=== PATIENT | male | born 1995 ===

== ENCOUNTER → 2022-09-22 | Outpatient (REF) | payer OTHER ==
[2022-09-22 14:58] LABS: SEMEN APPEARANCE OPAQUE (OPAQUE); SEMEN VISCOSITY LIQUID (LIQUID); SEMEN VOLUME 2.5 ml (2.0-5.0)
[2022-09-22 14:59] LABS: SPERM CONCENTRATION 109.3 M/ml (>=15.0); WBC CONCENTRATION <=1 M/ml (<=1 M/ml)
== END ==
LOC: M LAB REF 14:52
PROVIDERS: ATTEND Physician Assistant
DX: N46.9 Male infertility, unspecified (principal)